=== PATIENT | female | born 1965 | race Caucasian/White ===

== ENCOUNTER 2017-09-05 12:26 | Emergency (ER) | payer OTHER ==
[~2017-09-05] VITALS: Ht 149.9 cm; Wt 49.9 kg
[~2017-09-05 12:26] MED LIST: ASPIRIN325 MG PO; ATENOLOL50 MG PO; BUTALB-ACETAMI1 EACH PO; CALCIFEROL8000 U/ML PO; CALCIUM 500+D1 EACH PO; CARVEDILOL3.125 MG PO; CITALOPRAM HBR20 MG PO; CYCLOBENZAPRINE10 MG PO; DICYCLOMINE HCL10 MG PO; DRISDOL50000 UNIT PO; FIORICET PO; NORCO 10MG-325MG1 EA PO; OMEGA-31000 MG; OMEGA-31000 MG PO; PANTOPRAZOLE SO40 MG PO; PLAVIX75 MG PO; PRAVASTATIN SOD40 MG PO; TAMSULOSIN HCL0.4 MG PO; TIZANIDINE HCL4 MG PO; URSODIOL300 MG PO
[2017-09-05] MEDS ORDERED: HYDROCODONE/APAP 5MG-325MG TAB PO NR (15:15)
[2017-09-05] MEDS ORDERED: HYDROCODONE/APAP 5MG-325MG TAB PO ONE (15:15)
[2017-09-05] MEDS ORDERED: KEFLEX500 MG PO (15:26)
== END 2017-09-05 15:30 | disposition home or self-care (01) ==
LOC: FSED 12:26
DX: L03.116 Cellulitis of left lower limb (principal); I87.2 Venous insufficiency (chronic) (peripheral); R60.9 Edema, unspecified; R26.2 Difficulty in walking, not elsewhere classified; I10 Essential (primary) hypertension; I25.10 Atherosclerotic heart disease of native coronary artery without angina pectoris; E78.5 Hyperlipidemia, unspecified; I69.998 Other sequelae following unspecified cerebrovascular disease
CPT/HCPCS: 80053; 85025; 85379; 85610; 93971; 99284

== ENCOUNTER 2021-01-29 10:43 | Emergency (ER) | payer OTHER ==
[~2021-01-29] VITALS: Ht 149.9 cm; Wt 49.9 kg
[~2021-01-29 10:43] MED LIST changes: +KEFLEX500 MG PO
[2021-01-29] MEDS ORDERED: ULTRAM50 MG PO (12:38)
== END 2021-01-29 13:21 | disposition home or self-care (01) ==
LOC: FSED 11:11
DX: S80.02XA Contusion of left knee, initial encounter (principal); W01.0XXA Fall on same level from slipping, tripping and stumbling without subsequent striking against object, initial encounter; Y93.01 Activity, walking, marching and hiking; Y92.89 Other specified places as the place of occurrence of the external cause; I10 Essential (primary) hypertension; I25.10 Atherosclerotic heart disease of native coronary artery without angina pectoris; E78.5 Hyperlipidemia, unspecified; Z86.73 Personal history of transient ischemic attack (TIA), and cerebral infarction without residual deficits; Z95.5 Presence of coronary angioplasty implant and graft
CPT/HCPCS: 99283

== ENCOUNTER 2021-03-12 11:57 | Emergency (ER) | payer OTHER ==
[~2021-03-12] VITALS: Ht 149.9 cm; Wt 56.7 kg
[~2021-03-12 11:57] MED LIST changes: +ULTRAM50 MG PO
[2021-03-12] MEDS ORDERED: PREDNISONE 20 MG TAB PO ONE (12:45)
[2021-03-12] MEDS ORDERED: KETOROLAC TROMETHAMINE 30 MG/ML VIAL IM ONE (12:45)
[2021-03-12] MEDS ORDERED: IBUPROFEN IB200 MG PO (12:58)
[2021-03-12] MEDS ORDERED: PREDNISONE20 MG PO (12:58)
== END 2021-03-12 13:45 | disposition home or self-care (01) ==
LOC: FSED 12:04
DX: M54.50 Low back pain, unspecified (principal); G62.9 Polyneuropathy, unspecified; I10 Essential (primary) hypertension; I25.10 Atherosclerotic heart disease of native coronary artery without angina pectoris; E78.5 Hyperlipidemia, unspecified; E78.00 Pure hypercholesterolemia, unspecified; Z86.73 Personal history of transient ischemic attack (TIA), and cerebral infarction without residual deficits; Z95.5 Presence of coronary angioplasty implant and graft; F17.210 Nicotine dependence, cigarettes, uncomplicated
CPT/HCPCS: 81003; 99283; J1885; J7512